=== PATIENT | female | born 1990 | race American Indian/Alaskan Native ===

== ENCOUNTER 2018-08-26 15:13 | Emergency (ER) | payer BC ==
[2018-08-26] MEDS ORDERED: ZOFRAN IV ONE (16:10)
[2018-08-26] MEDS ORDERED: MORPHINE IV ONE (16:10)
[2018-08-26] MEDS ORDERED: NACL 0.9% 1000 ML 1,000 ML IV ONE (16:10)
--- NOTE | 2018-08-26 16:14 | Emergency Department Report ---
ED Abdominal Pain HPI - General Chief Complaint: Abdominal Pain Stated Complaint: SEIZURE Time Seen by Provider: 08/26/18 16:04 Source: patient Mode of arrival: Stretcher Limitations: No Limitations - History of Present Illness Initial Comments: Patient is 27 years old female with no significant past medical history except for menstrual cramps. Patient presented to the ER complaining of lower abdominal pain started this morning. Patient is actively vomiting in the emergency room. Patient describes her pain as crampy in nature with no radiation. Patient denied any fever or chills. No diarrhea. Patient stated that she had multiple episodes like this around her period. MD Complaint: abdominal pain -: This morning Location: suprapubic Radiation: none Migration to: no migration Severity: severe Severity scale (0 -10): 9 Quality: cramping Consistency: constant - Related Data Home Medications Medication Instructions Recorded Confirmed Last Taken No Known Home Medications [No 08/26/18 08/26/18 Unknown Reported Home Medications] Allergies Allergy/AdvReac Type Severity Reaction Status Date / Time No Known Allergies Allergy Unverified 08/26/18 15:49 ED Review of Systems ROS: Stated complaint: SEIZURE Other details as noted in HPI Comment: All other systems reviewed and negative Constitutional: denies: chills, fever Respiratory: denies: cough, orthopnea, shortness of breath, SOB with exertion, SOB at rest, wheezing Cardiovascular: denies: chest pain, palpitations, dyspnea on exertion Gastrointestinal: abdominal pain, nausea, vomiting. denies: diarrhea, constipat ion, hematemesis, melena, hematochezia Musculoskeletal: denies: back pain Neurological: denies: headache, weakness, numbness, paresthesias, confusion ED Past Medical Hx - Past Medical History Previous Medical History?: Yes Hx Hypertension: Yes - Surgical History Past Surgical History?: Yes Additional Surgical History: gallbladder - Social History Smoking Status: Never Smoker Substance Use Type: None - Medications Home Medications: Home Medications Medication Instructions Recorded Confirmed Last Taken Type No Known Home Medications [No 08/26/18 08/26/18 Unknown History Reported Home Medications] ED Physical Exam - General Limitations: No Limitations General appearance: alert, in no apparent distress - Head Head exam: Present: atraumatic, normocephalic, normal inspection - Eye Eye exam: Present: normal appearance, PERRL - ENT ENT exam: Present: normal exam, normal orophraynx, mucous membranes moist - Neck Neck exam: Present: normal inspection, full ROM. Absent: tenderness, meningismus, lymphadenopathy, thyromegaly - Respiratory Respiratory exam: Present: normal lung sounds bilaterally - Cardiovascular Cardiovascular Exam: Present: regular rate, normal rhythm, normal heart sounds - GI/Abdominal GI/Abdominal exam: Present: soft, tenderness, normal bowel sounds. Absent: distended, guarding, rebound, rigid, organomegaly, mass, bruit, pulsatile mass, hernia - Extremities Exam Extremities exam: Present: normal inspection, full ROM, normal capillary refill. Absent: tenderness, pedal edema, calf tenderness - Back Exam Back exam: Present: normal inspection, full ROM. Absent: CVA tenderness (R), CVA tenderness (L), muscle spasm, paraspinal tenderness, vertebral tenderness - Neurological Exam Neurological exam: Present: alert, oriented X3, CN II-XII intact, normal gait - Skin Skin exam: Present: warm, intact, normal color ED Course Vital Signs 08/26/18 08/26/18 08/26/18 15:49 18:14 19:10 Temperature 98 F 97.8 F Pulse Rate 89 74 79 Respiratory 16 16 18 Rate Blood Pressure 174/99 Blood Pressure 156/102 153/107 [Left] O2 Sat by Pulse 95 97 100 Oximetry ED Medical Decision Making - Lab Data Result diagrams: 08/26/18 16:24 08/26/18 16:24 - Radiology Data Radiology results: report reviewed CT abdomen and pelvis is IV contrast is remarkable for acute finding. - Medical Decision Making Patient is 27 years old female with no significant past medical history except for menstrual cramps. Patient presented to the ER complaining of lower abdominal pain started this morning. Patient is actively vomiting in the emergency room. Patient describes her pain as crampy in nature with no radiation. Patient denied any fever or chills. No diarrhea. Patient stated that she had multiple episodes like this around her period. Patient stated that she is feeling much better. No more nausea or vomiting or abdominal pain. CT abdomen and pelvis is unremarkable for acute findings. Patient found to have a UTI. Patient advised to follow-up with her primary care physician for possible referral to gynecology. Patient also advised to return to the ER if symptoms are not improved. Critical care attestation.: If time is entered above; I have spent that time in minutes in the direct care of this critically ill patient, excluding procedure time. ED Disposition Clinical Impression: Abdominal pain, UTI (urinary tract infection) Disposition: -01 TO HOME OR SELFCARE Is pt being admited?: No Condition: Stable Instructions: Abdominal Pain (ED), Urinary Tract Infection in Women (ED) Referrals: GÉNESIS BRAGG MD [Primary Care Provider] - 3-5 Days
[2018-08-26 16:38] LABS: Basophils # (Auto) 0.1 K/mm3 (0.0-0.1); Basophils % (Auto) 0.4 % (0.0-1.8); Eosinophils % (Auto) 0.2 % (0.0-4.3); Hematocrit 46.1 % (30.3-42.9); Hemoglobin 15.5 gm/dl (10.1-14.3); Lymphocytes # (Auto) 1.8 K/mm3 (1.2-5.4); Lymphocytes % (Auto) 10.7 % (13.4-35.0); Mean Corpuscular HGB Conc 34 % (30-34); Mean Corpuscular Volume 90 fl (79-97); Monocytes # (Auto) 0.8 K/mm3 (0.0-0.8); Monocytes % (Auto) 4.9 % (0.0-7.3); Platelet Count 252 K/mm3 (140-440); Red Blood Count 5.11 M/mm3 (3.65-5.03); Red Cell Distribution Width 13.1 % (13.2-15.2)
[2018-08-26 16:54] LABS: Alanine Aminotransferase 10 units/L (7-56); Albumin 4.4 g/dL (3.9-5); BUN/Creatinine Ratio 16; Bilirubin,Direct 0.2 mg/dL (0-0.2); Blood Urea Nitrogen 13 mg/dL (7-17); Calcium 9.4 mg/dL (8.4-10.2); Hemolysis Index 4
[2018-08-26] MEDS ORDERED: ZOSYN/NS 3.375GM/50ML 3.375 GM/50 ML BAG IV ONE (17:14)
[2018-08-26] MEDS: KCL 10MEQ/100ML 10 MEQ/100 ML BAG IV SCH ×2 (18:12→19:58)
[2018-08-26 19:42] LABS: Bilirubin,Urine NEG (Negative); Blood,Urine SM (Negative); Color,Urine Yellow (Yellow); Mucus,Urine FEW /HPF; Protein,Urine <15 mg/dL mg/dL (Negative)
--- NOTE | 2018-08-26 21:37 | Cat Scan Report ---
PROCEDURE: CT ABDOMEN PELVIS W CON HISTORY: abdominal pain FINDINGS: Contrast enhanced CT of the abdomen and pelvis was performed and data was reformatted in th e sagittal and coronal planes. The heart is normal in size. The lung bases appear clear. ABDOMEN: The liver displays no suspect focal lesion. The spleen, adrenal glands, pancreas are unremarkable. Th ere has been a cholecystectomy. There is no renal or ureteral calculus. There is no small or large agustin wel obstruction. Pelvis: There is a normal appendix. There is no evidence of diverticulitis. The uterus is retroverted. There is a posterior uterine fundal partially exophytic leiomyoma, 2.0 cm. There is no adnexal mass. The urinary bladder is within normal limits. IMPRESSION: ABDOMEN: Cholecystectomy No bowel obstruction Pelvis: Normal appendix Uterine fundal leiomyoma This document is electronically signed by Michel Vance MD., August 26 2018 09:35:44 PM ET
[2018-08-26 22:26] VITALS: BP 145/100
== END 2018-08-26 22:26 | disposition home or self-care (01) ==
LOC: EDSEX → ED 15:13
DX: N39.0 Urinary tract infection, site not specified (principal); I10 Essential (primary) hypertension
CPT/HCPCS: 36415; 74177; 80048; 80076; 81001; 84703; 85025; 87040; 96361; 96365; 96375; 99285; J2270; J2405; J2543; J3480; J7030; Q9967